=== PATIENT | female | born 1980 | race Two or more races ===

== ENCOUNTER 2021-10-09 18:58 | Emergency (ER) | payer SELFPAY ==
[~2021-10-09] VITALS: Ht 160 cm; Wt 63.5 kg
[2021-10-09] MEDS ORDERED: diphenhydrAMINE HCL 50 MG/ML VIAL ONE (20:09)
[2021-10-09] MEDS ORDERED: HALOPERIDOL LACTATE INJ 5 MG/ML VIAL ONE (20:09)
[2021-10-09] MEDS ORDERED: LORAZEPAM INJ 2 MG/ML VIAL ONE (20:10)
--- NOTE | 2021-10-09 20:22 | NUR ---
[employer] AND [employer] TO ER BED 12. AGITATED, YELLING, SCREAMING AND CURSING. NOT IN RESP DISTRESS. BROUGHT IN FOR AGITATED BEHAVIOR AND DANGER TO HER SELF. PT WAS REPORTED TO HAVE CLIMBED AND POWER LINE TOWER. PT PLACED ON 5150 HOLD BY KIRBY. WAS AT THE BEDSIDE FOR EVAL. ORDERS RECEIVED, NOTED AND CARRIED OUT. PT MEDICATED ORDERED.
[2021-10-09] MEDS ORDERED: diphenhydrAMINE HCL 50 MG/ML VIAL IM ONE (20:30)
[2021-10-09] MEDS ORDERED: LORAZEPAM INJ 2 MG/ML VIAL IM ONE (20:30)
[2021-10-09] MEDS ORDERED: HALOPERIDOL LACTATE INJ 5 MG/ML VIAL IM ONE (20:30)
--- NOTE | 2021-10-09 21:20 | NUR ---
Patient is resting comfortably in bed with eyes closed. Easily aroused. VSS
[2021-10-09 21:21] LABS: BASOPHILS % (AUTO) 0.4 % (0.0-2.0); HEMATOCRIT 34 % (33-45); HEMOGLOBIN 11.3 g/dL (11.5-14.8); LYMPHOCYTES # (AUTO) 1.5 K/uL (0.8-4.8); LYMPHOCYTES % (AUTO) 11.6 % (20.0-44.0); MEAN CORPUSCULAR HGB CONC 33 g/dl (31.0-36.0); MEAN CORPUSCULAR VOLUME 100 fL (82-100); MONOCYTES # (AUTO) 0.9 K/uL (0.1-1.30); NEUTROPHILS # (AUTO) 10.7 K/uL (1.8-8.9); PLATELET COUNT (AUTO) 249 K/uL (150-450); RED BLOOD CELL COUNT(AUTO) 3.39 MIL/uL (4.0-5.2); WHITE BLOOD COUNT (AUTO) 13.2 K/uL (4.3-11.0)
[2021-10-09 21:38] LABS: CALCIUM, SERUM 8.2 mg/dL (8.5-10.1); CARBON DIOXIDE 25 mmol/L (21-32); CHLORIDE 105 mmol/L (98-107); CREATININE 0.9 mg/dL (0.6-1.3); GLUCOSE 70 mg/dL (74-106); POTASSIUM 3.5 mmol/L (3.5-5.1); SODIUM SERUM 141 mmol/L (136-145); UREA NITROGEN, BLOOD 17 mg/dL (7-18)
[2021-10-09 21:43] LABS: ALANINE AMINOTRANSFERASE 24 U/L (12-78); ALBUMIN 3.4 g/dL (3.4-5.0); ALCOHOL, BLOOD < 3 mg/dL (0-0); ALKALINE PHOSPHATASE 61 U/L (46-116); ASPARTATE AMINOTRANSFERASE 32 U/L (15-37); BILIRUBIN,DIRECT 0.2 mg/dL (0.0-0.2); BILIRUBIN,TOTAL 0.8 mg/dL (0.2-1.0)
[2021-10-09 21:45] LABS: ACETAMINOPHEN < 0 ug/ml (10-30)
--- NOTE | 2021-10-09 22:30 | NUR ---
pt sleeping, easily arousable, attached to monitor,vss
--- NOTE | 2021-10-09 23:30 | NUR ---
pt urinated, needs met
--- NOTE | 2021-10-10 00:15 | NUR ---
Patient is resting comfortably in bed with eyes closed. Easily aroused. VSS
--- NOTE | 2021-10-10 01:25 | NUR ---
pt sleeping, easily arousable, attached to monitor,vss
[2021-10-10 01:52] LABS: BILIRUBIN,URINE NEGATIVE (NEGATIVE); COLOR,URINE YELLOW (YELLOW); LEUKOCYTE ESTERASE ,URINE NEGATIVE (NEGATIVE); NITRITE, URINE NEGATIVE (NEGATIVE); PROTEIN,URINE NEGATIVE (NEGATIVE); UGLUCOSE NEGATIVE (NEGATIVE); UROBILINOGEN,URINE 0.2 EU/dL (0.2)
[2021-10-10 02:04] LABS: BACTERIA,URINE Few /HPF (None Seen); MUCUS,URINE Few /LPF (None Seen); RBC,URINE 0-2 /HPF (0-2); SQUAMOUS EPITHELIAL CELL,UR Few /HPF (None Seen); WBC,URINE 21-50 /HPF (0-3)
--- NOTE | 2021-10-10 02:30 | NUR ---
pt sleeping, easily arousable, attached to monitor,vss
--- NOTE | 2021-10-10 03:30 | NUR ---
edie moody at bedside for eval.
--- NOTE | 2021-10-10 03:40 | NUR ---
Patient is resting comfortably in bed with eyes closed. Easily aroused. VSS
--- NOTE | 2021-10-10 04:37 | NUR ---
pt sleeping, easily arousable, attached to monitor,vss
[2021-10-10] MEDS ORDERED: OLANZAPINE 10 MG VIAL IM ONE ×2 (05:00→05:10)
--- NOTE | 2021-10-10 06:32 | NUR ---
covid swab done and sent to lab
--- NOTE | 2021-10-10 23:17 | NUR ---
PATIENT ALERT AND ORIENTED RESTING COMFORTABLY NO COMPLAINTS AT THIS TIME.
--- NOTE | 2021-10-11 04:47 | NUR ---
PT AWAKE, AND ALERT. VERBALLY RESPONSIVE. REQUESTED TO USE THE BATHROOM. PT WAS OBSERVED WALKING TO THE BATHROOM. AMBULATORY W/ STEADY GAITS. REPORTED FEELING WELL AND WILLING TO LEAVE. PT WAS INSTRUCTED TO REMAINE IN BED UNTIL SHE IS EVALUATED AND IS CLEAR FOR DISCHARGE
--- NOTE | 2021-10-11 10:07 | NUR ---
SS Consult: SS consult for behavioral. Pt. Is a 41-year-old female. Pt. does not demonstrate adequate insight to the reason for hospitalization. Pt. stated, "it's not a big deal." Per pt., the ambulance found her and brought her to the hospital. Per EMR, she was found in public trying to climb a power line pole. Pt. was oriented x3, alert, and cooperative. During interview, pt. was capable of following directions, made appropriate eye-contact, and appeared unkept. Evidenced by, bad hygiene. Pt.'s speech was at a normal rate. Pt.'s mood was elevated. SW explored pt.'s Hx of mental health and substance abuse. Pt. reported no Hx of mental health, substance abuse, suicidal or homicidal. Pt. denies auditory hallucinations, visual hallucinations, paranoia, or delusions. Per EMR, pt. is positive for amphetamine. SW explored pt.'s living situation. Per pt., she has been homeless for about 3 years. Pt. stated that she goes to shelters [unknown name]. Per pt., she reports having no adequate support. Pt. stated that she is ready to be discharged. Plan: SW provided available homeless and substance abuse resources and pt. accepted. Pt. was willing to sign homeless waiver and is placed in pt.'s chart. Per pt., she will use the resources that are provided. Resources Provided: Year-round shelters: [place] [address] [place] [address] ; [facility] [place] [address] [place] [address]; [facility] [place] [facility] [address] Winter Shelters: Jamie Candelaria [place] Provider: [facility] [place] Address: [address] [facility] [place], [address] # of Beds: 47 Population Served: [facility] 6 | [facility] Teresa Abarca Emeli Provider: [facility] Address: [address] [place] [address], [address] # of Beds: 66 Population Served: [facility], [place] Provider: [facility] Address: [address] [facility], [address] # of Beds: 56 Population Served: [facility] [place] Provider: [facility] Address: [address] [facility], [address] # of Beds: 49 Population Served: [facility] 8 | [facility] Provider: [facility] Serve Address: [facility] Hospital[facility] [place], [address] # of Beds: 37 Population Served: Co[facility] Hygiene: [facility]: [address] [place] ; [facility] [address] [facility] ; [facility] [address] [place] . Food Resources: [place] [facility] [address] [facility]; Meet Each Need with Dignity ([facility]) [address] [facility]; [facility] [address] [facility]; [facility] 8562 [facility]. Mental Health resources provided: [facility] [address] [place], [place] [phone] ; [facility] [address] [facility] [address], [place] [address] ; Suyapa Morales [facility] [address] [place], [place] [phone] ; [facility] [address] [place], [place] [phone] Healthcare Clinics: [facility] [address] [facility], [address] [place]. [place] ; [facility] [address] [facility] [address] [place] [address]; [facility] [address] [facility]. [place] [phone] Counseling--Outpatient [facility] [address], [place] [address] (Specializes in in-depth psychotherapy for emotional distress: anxiety, depression, interpersonal conflicts, life transitions, childhood abuse) [facility] [address] [place] [address] (Assist with solving problem marital difficulties, separation & divorce, aging parents, & grief, chronic & terminal illness) [facility] [address] [place] [address] (Deal with loss & grief, anxiety, marital difficulties) Homebound/Mental Health Services [address] [facility] [address] [place] [address] (Provide in-home mental services to people who are incapable of leaving their homes) [facility] Elder[facility] Senior Service/Resource Center [address] [place] [address] [facility] [address] [place] [address] PSYCHIATRIC OUTPATIENT SERVICES [facility] Partial Hospitalization and Intensive Outpatient Program (Managed Care and Equality Only)[address] Bl[facility]ieAt[facility] Health [facility] [phone] [facility] Partial Hospitalization and Outpatient [id number] [facility] [address] [place], [place] [phone] [facility] [place] Egk[address] [facility] [address] [place], [place] [phone] [facility] Partial Hospitalization and Outpatient Rpduajw11982 eliP[place], [phone] Substance Abuse resources provided included: [facility] Substance Abuse Self-Helpline (SAS) ; [facility] [address] [facility] [place] [address] ; [facility] [address] [facility] [address] ; [facility] [address] [place]. [place] [phone] ; [facility] [address] [facility] [address] ; [facility] [address] [facility] [address] ; [facility] [address] [facility] [phone] ; [facility] Substance Abuse Helpline(SAS)[facility] ; [facility] ; [facility] [place]; [facility] [place]; [facility] [place]; [facility] [place]; [place] [facility]; [facility]; [facility]; [facility] [place], [facility]. [place]; Alcoholics Anonymous -SFV; Yair ; Marijuana Anonymous -SFV; Narcotics Anonymous www.na.org;
--- NOTE | 2021-10-11 13:15 | NUR ---
KETTY VALENZUELA [phone]
--- NOTE | 2021-10-11 13:44 | NUR ---
KETTY VALENZUELA [phone]
--- NOTE | 2021-10-11 14:01 | NUR ---
NICOLAS CALLED BACK OUT OF TOWN ASKE FOR [employer]PPLY CLERK CLINICIAN TO SEE PT
--- NOTE | 2021-10-11 14:01 | NUR ---
CALLED ART WILL CALL US BACK
--- NOTE | 2021-10-11 14:03 | NUR ---
ART CALLED BACK SPEAKING WITH
--- NOTE | 2021-10-11 14:27 | NUR ---
CALLED KIRBY MANAGER SOURCING 441 ABOUT ELOPING
[2021-10-15 09:42] VITALS: BP 128/75
== END 2021-10-11 15:16 | disposition left against medical advice (07) ==
LOC: ER 19:32
DX: F23 Brief psychotic disorder (principal); R45.1 Restlessness and agitation; F15.10 Other stimulant abuse, uncomplicated; Z20.822 Contact with and (suspected) exposure to COVID-19; R00.0 Tachycardia, unspecified
CPT/HCPCS: 36415; 80048; 80076; 80143; 80307; 80320; 81001; 84484; 84703; 85025; 87086; 87426; 93005; 96372 ×3; 99291; C9803; J1200; J1630; J2060; J3490; G0480